=== PATIENT | male | born 1995 | race Caucasian/White ===

== ENCOUNTER 2018-09-16 23:57 | Emergency (ER) | payer MEDICAID ==
[~2018-09-16] VITALS: Ht 175.3 cm; Wt 156.0 kg
[2018-09-17 00:08] VITALS: BP 138/74
--- NOTE | 2018-09-17 00:15 | NUR ---
PT AMBULATED TO BED 12
--- NOTE | 2018-09-17 00:20 | NUR ---
PT CAME IN WITH BILATERAL SWELLING OF THE ANKLES. DENIES ANY INJURY OR TRAUMA. PT PAIN LEVEL 5/10, THROBBING. MED HX: ASTHMA. SAFETY MEASURES IN PLACE. WAITING FOR ERMD TO EVALUATE PT.
[2018-09-17 00:40] VITALS: BP 138/74
--- NOTE | 2018-09-17 00:40 | NUR ---
Patient discharged with v/s stable. Written and verbal after care instructions given and explained. PT EDUCATED ON ELEVATING BOTH EXTERMITIES. Patient verbalized understanding. Ambulatory with steady gait. All questions addressed prior to discharge.
== END 2018-09-17 00:40 | disposition home or self-care (01) ==
LOC: MED 23:57
DX: R60.9 Edema, unspecified (principal); J45.909 Unspecified asthma, uncomplicated
CPT/HCPCS: 99281

== ENCOUNTER 2020-11-20 21:04 | Emergency (ER) | payer MEDICAID ==
[~2020-11-20] VITALS: Ht 175.3 cm; Wt 167.8 kg
[2020-11-20 21:22] VITALS: BP 161/90
--- NOTE | 2020-11-20 21:22 | NUR ---
PT BIBS FOR C/C SOB X 2 DYAS. PT REPORTS HE HAS HAD A DRY COUGH AND SORE THROAT X 2 DAYS. DENIES N/V/D, FEVER, CHILLS OR CP. O2 SAT NOTED TO BE 75% ON ROOM AIR. PA REPORTS HE IS NONCOMPLIANT WITH RX LASIX AND CPAP AT NIGHT WITH HX OF SLEEP APNEA. PT NOTED WITH WHEEZING AT BILATERAL BASES. AMBULATORY AND ABLE TO SPEAK IN COMPLETE SENTENCES. CAP REFILL < 3 SECONDS. PLACED ON 4 L N.C. CONNECTED TO SLAB TRIPPER. RT PAGED. MED HX: ASTHMA, HTN, DM, SLEEP APNEA ALLERGIES: NKA
--- NOTE | 2020-11-20 21:22 | NUR ---
TO BED AMBULATORY
--- NOTE | 2020-11-20 21:37 | NUR ---
Respiratory Therapist at bedside for respiratory intervention.
--- NOTE | 2020-11-20 21:37 | NUR ---
Dr. Gipson examining patient.
--- NOTE | 2020-11-20 21:53 | NUR ---
XRAY AT BEDSIDE.
[2020-11-20 22:01] LABS: BASOPHILS % (AUTO) 0.5 % (0.0-2.0); EOSINOPHILS # (AUTO) 0.3 K/uL (0-0.4); EOSINOPHILS % (AUTO) 3.2 % (0.0-4.0); HEMOGLOBIN 14.1 g/dL (12.0-18.0); LYMPHOCYTES # (AUTO) 1.6 K/uL (2.0-11.5); LYMPHOCYTES % (AUTO) 16.1 % (20.5-51.1); MEAN CORPUSCULAR HEMOGLOBIN 26 pg (27-31); MEAN CORPUSCULAR HGB CONC 31 g/dL (33-37); MEAN CORPUSCULAR VOLUME 82.1 fL (80-94); MONOCYTES # (AUTO) 0.8 K/uL (0.8-1.0); MONOCYTES % (AUTO) 8.5 % (1.7-9.3); NEUTROPHILS # (AUTO) 7.1 K/uL (1.8-7.7); NEUTROPHILS % (AUTO) 71.7 % (42.2-75.2); PLATELET COUNT (AUTO) 249 K/uL (140-450); RED BLOOD CELL COUNT(AUTO) 5.49 MIL/uL (4.20-6.10); RED CELL DISTRIBUTION WIDTH 16.9 % (11.6-13.7); WHITE BLOOD COUNT (AUTO) 9.9 K/uL (4.8-10.8)
[2020-11-20] MEDS: ALBUTEROL SULFATE/IPRATROPIU 3 ML SOL IH ONE ×2 (22:11)
[2020-11-20 22:15] LABS: ANION GAP 4.3 (8-16); CARBON DIOXIDE 34.9 mmol/L (21-32); CREATININE 0.8 mg/dL (0.6-1.3); POTASSIUM 4.2 mmol/L (3.5-5.1)
[2020-11-20] MEDS: FUROSEMIDE 40 MG/4 ML VIAL IVP ONE (22:49)
[2020-11-20] MEDS: methylPREDNISolone SS 125 MG/2 ML VIAL IVP ONE (22:50)
--- NOTE | 2020-11-20 23:01 | NUR ---
PT SATURATING AT 87-89% ON 3 L NC. RT PAGED FOR REEVAL.
--- NOTE | 2020-11-20 23:05 | NUR ---
RT AT BEDSIDE.
--- NOTE | 2020-11-20 23:10 | NUR ---
VANESSA OF NARES COLLECTED AND TAKEN TO LAB.
[2020-11-20] MEDS ORDERED: cefTRIAXone 2,000 MG VIAL ONE (23:19)
[2020-11-20] MEDS: cefTRIAXone 2,000 MG in DEXTROSE 5% 100 ML IV ONE (23:29)
[2020-11-20] MEDS ORDERED: METF500S6 PO (23:48)
[2020-11-20] MEDS ORDERED: INSU100I7 SQ (23:48)
[2020-11-20] MEDS ORDERED: AZITHROMYCIN 500 MG INJ VIAL IV ONE (23:49)
--- NOTE | 2020-11-20 23:50 | NUR ---
RT AT BEDSIDE. PLACING PT ON SIMPLE MASK.
--- NOTE | 2020-11-21 00:40 | NUR ---
CONSENT FOR TX OBTAINED.
[2020-11-21] MEDS: AZITHROMYCIN 500 MG in DEXTROSE 5% 250 ML IV ONE (00:48)
--- NOTE | 2020-11-21 00:52 | NUR ---
Patient appears to be resting comfortably in bed, EYES CLOSED. Vital Signs within normal limits. Respirations even and unlabored. AUDIBLE SNORING NOTED. AROUSABLE TO VOICE. WILL CONTINUE TO MONITOR.
--- NOTE | 2020-11-21 01:56 | NUR ---
Patient to be transferred to [facility]. Is being transferred due to INSURANCE. Receiving facility has accepting physician and available space. ER physician has signed transfer form. Patient or responsible constitution party has agreed to transfer and signed form. Patient belongings inventoried and will be sent with patient. Copy of nursing notes, lab reports, EKG, Physicians Orders and X-rays to be sent with patient. Report called to KAROLINE GOMEZ at receiving facility. [facility] ambulance service has been called for transfer. ETA is 60 MIN.
--- NOTE | 2020-11-21 02:06 | NUR ---
PT UTILIZED BEDSIDE URINAL MULTIPLE TIMES. APPROX 2,500 CC CLEAR, YELLOW URINE NOTED TOTAL.
--- NOTE | 2020-11-21 02:17 | NUR ---
PT C/O HEADACHE AND NAUSEA. JACY CARRANZA MADE AWARE. VERBAL ORDER FOR TYLENOL 1 G AND ZOFRAN 4 MG ODT. ORDER PLACED.
[2020-11-21] MEDS: ONDANSETRON 4 MG ODT PO ONE (02:30)
[2020-11-21] MEDS: ACETAMINOPHEN EXTRA STRENGTH 500 MG TAB PO ONE (02:30)
--- NOTE | 2020-11-21 02:45 | NUR ---
Patient appears to be resting comfortably in bed, EYES CLOSED. Vital Signs within normal limits. Respirations even and unlabored. AUDIBLE SNORING NOTED. WILL CONTINUE TO MONITOR.
--- NOTE | 2020-11-21 03:00 | NUR ---
PT DENIES HEADACHE AND NAUSEA AT THIS TIME.
--- NOTE | 2020-11-21 04:36 | NUR ---
[facility] AT BEDSIDE FOR TRANSPORT.
--- NOTE | 2020-11-21 04:37 | NUR ---
Sehrri gann in [facility] - 11/21/20 at 0437 by JENNIFER [facility]SP[facility] AT BEDSIDE
[2020-11-21 04:41] VITALS: BP 140/78
--- NOTE | 2020-11-21 04:41 | NUR ---
PT TAKEN BY [facility] TRANSP[facility] TO [facility] ROOM [address]
== END 2020-11-21 04:41 | disposition short-term general hospital (02) ==
LOC: MED 21:04
DX: J96.90 Respiratory failure, unspecified, unspecified whether with hypoxia or hypercapnia (principal); J18.9 Pneumonia, unspecified organism; J45.901 Unspecified asthma with (acute) exacerbation; Z20.822 Contact with and (suspected) exposure to COVID-19
CPT/HCPCS: 36415; 71045; 80048; 83880; 84484; 85025; 87426; 93005; 94640; 96365; 96367; 96375; 99291; J0456; J0696; J1940; J2930; Q0092; Q0162